=== PATIENT | male | born 1985 | race Caucasian/White ===

== ENCOUNTER 2017-09-27 21:35 | Emergency (ER) | payer OTHER ==
[2017-09-27 21:49] VITALS: BP 136/78; PULSE 68; RESP 16; TEMP 97.9; O2SAT 96
--- NOTE | 2017-09-27 22:26 | EDPHY ---
H & P Time Seen by Provider: 09/27/17 21:43 HPI/ROS: 32-year-old male twisted his knee while doing [employer] today. He complains of mild pain 1/10 in his right knee at the medial aspect and complains of mild swelling Review of systems As per HPI General no fever no chills no weakness HEENT no eye pain no eye discharge. No eye redness, no sore throat Respiratory no cough, no shortness of breath Cardiac no chest pain, no peripheral edema GI no abdominal pain, no diarrhea, no constipation, no nausea, no vomiting no flank pain, no hematuria, no dysuria Musculoskeletal no myalgias, positive joint pain Heme no easy bruising, no easy bleeding Endo no polyuria, no polydipsia Skin no rashes, no pruritus Neuro no syncope, no dizziness, no headaches Psych is no suicidal ideation, no homicidal ideation Past Medical/Surgical History: Non contributory Social History: Denies alcohol or drug use Smoking Status: Never smoked Physical Exam: 32 yo M alert and oriented in nad nontoxic appearance at,nc no resp distress lungs cta bilat heart rrr abd nabs ext right knee pos right knee swelling at medial aspect no ecchymoses neg anterior and posterior drawer no lateral or medial laxity mild ttp at [facility] (rates pain 1/10) pt able to bear weight pt with from of knee Constitutional: Initial Vital Signs Temperature (C) 36.6 C 09/27/17 21:46 Heart Rate 68 09/27/17 21:46 Respiratory Rate 16 09/27/17 21:46 Blood Pressure 136/78 H 09/27/17 21:46 O2 Sat (%) 96 09/27/17 21:46 O2 Delivery Mode Room Air Allergies/Adverse Reactions: No Known Allergies Allergy (Unverified 09/27/17 22:16) Home Medications: Medication Instructions Recorded NK [No Known Home Meds] 09/27/17 Medical Decision Making - Diagnostics Imaging Results: Imaging Impressions Knee X-Ray 09/27/17 21:45 Impression: Small right knee joint effusion, otherwise negative. ED Course/Re-evaluation: Patient seen and evaluated for right knee injury X-ray Negative for fracture small effusion Impression Right knee sprain Plan Velcro knee brace Rest ice elevation Ibuprofen as needed Follow up Ortho Differential Diagnosis: Differential diagnosis considered but not limited to: Knee sprain, internal derangement of knee, , effusion, leg fracture Departure - Departure Disposition: Home, Routine, Self-Care Clinical Impression: Sprain of right knee Condition: Good Instructions: Knee Sprain (ED) Referrals: NONE *PRIMARY CARE P,. [Primary Care Provider] - As per Instructions Leonardo Chen MD [Medical Doctor] - As per Instructions
== END 2017-09-27 22:40 | disposition home or self-care (01) ==
LOC: CED 21:35
DX: S83.91XA Sprain of unspecified site of right knee, initial encounter (principal); X58.XXXA Exposure to other specified factors, initial encounter
CPT/HCPCS: 73564-PO; L1830